=== PATIENT | female | born 1960 | race Caucasian/White ===

== ENCOUNTER 2023-12-05 11:27 | Outpatient (CLI) | payer OTHER, SELFPAY | END 2023-12-05 11:28 | disposition home or self-care (01) | PROVIDERS: PCP Family Medicine; Visit Provider Family Medicine | DX: Z00.00 Encounter for general adult medical examination without abnormal findings (principal); I10 Essential (primary) hypertension; Z11.59 Encounter for screening for other viral diseases; Z13.6 Encounter for screening for cardiovascular disorders | CPT/HCPCS: 80053; 80061; 82043; 82570; 84156; 86803 ==

== ENCOUNTER 2025-01-15 09:21 | Outpatient (CLI) | payer OTHER, SELFPAY | END 2025-01-15 09:22 | disposition home or self-care (01) | PROVIDERS: PCP Family Medicine; Visit Provider Family Medicine | DX: Z13.228 Encounter for screening for other metabolic disorders (principal); Z13.220 Encounter for screening for lipoid disorders | CPT/HCPCS: 80053; 80061 ==